=== PATIENT | male | born 1985 | race Caucasian/White ===

== ENCOUNTER 2024-02-16 08:55 | Emergency (ER) | payer MEDICAID ==
[~2024-02-16] VITALS: Ht 165.1 cm; Wt 91.6 kg
[2024-02-16 09:07] VITALS: BP 135/87; PULSE 113; RESP 18; TEMP 98.6; O2SAT 95
[2024-02-16] MEDS: diphenhydrAMINE 50 MG/ML VIAL IVP ONE (09:35)
[2024-02-16] MEDS: FAMOTIDINE 20 MG TAB PO ONE (09:44)
[2024-02-16] MEDS: EPINEPHrine 1 MG/ML AMP IM ONE (09:49)
[2024-02-16 09:53] VITALS: O2SAT 98
[2024-02-16 09:57] LABS: BASOPHILS % (AUTO) 0.2 % (0.0-2.0); EOSINOPHILS % (AUTO) 0.1 % (0.0-4.0); WHITE BLOOD COUNT (AUTO) 21.6 K/uL (4.8-10.8)
[2024-02-16 10:02] LABS: BASOPHILS # (AUTO) 0.1 K/uL (0.00-0.22); HEMATOCRIT 52.6 % (36-52); LYMPHOCYTES # (AUTO) 2.5 K/uL (2.0-11.5); LYMPHOCYTES % (AUTO) 11.8 % (20.5-51.1); MEAN CORPUSCULAR HEMOGLOBIN 31 pg (27-31); MEAN CORPUSCULAR HGB CONC 34 g/dL (33-37); MEAN CORPUSCULAR VOLUME 89.3 fL (80-94); MONOCYTES % (AUTO) 4.8 % (1.7-9.3); NEUTROPHILS % (AUTO) 83.1 % (42.2-75.2); PLATELET COUNT (AUTO) 360 K/uL (140-450); RED BLOOD CELL COUNT(AUTO) 5.89 MIL/uL (4.20-6.10); RED CELL DISTRIBUTION WIDTH 13.6 % (11.6-13.7)
[2024-02-16 10:08] LABS: ANION GAP 13.7 (8-16); CARBON DIOXIDE 28.1 mmol/L (21-32); CREATININE 0.8 mg/dL (0.6-1.3); POTASSIUM 3.8 mmol/L (3.5-5.1)
[2024-02-16] MEDS: ONDANSETRON 4 MG/2 ML VIAL IVP ONE (10:13)
[2024-02-16] MEDS: NACL 0.9% 1,000 ML IV ONE (10:15)
[2024-02-16] MEDS ORDERED: CRUSHER, PILL MC ONE (11:22)
[2024-02-16] MEDS: predniSONE 20 MG TAB PO ONE (11:26)
[2024-02-16] MEDS ORDERED: EPIN1KIT31 IM (12:26)
[2024-02-16] MEDS ORDERED: ONDA4ODT2 PO (12:27)
[2024-02-16] MEDS ORDERED: PRED20TA5 PO (12:28)
[2024-02-16 12:44] VITALS: BP 100/51; PULSE 88; RESP 22; O2SAT 97
[2024-02-17] MEDS ORDERED: BEN50 PO (03:14)
== END 2024-02-16 12:44 | disposition home or self-care (01) ==
LOC: MED 08:55
DX: T78.40XA Allergy, unspecified, initial encounter (principal); Z79.899 Other long term (current) drug therapy; X58.XXXA Exposure to other specified factors, initial encounter
CPT/HCPCS: 36415; 80048; 85025; 96361; 96372; 96374; 96375; 99284; J0171; J1200; J2405; J7512

== ENCOUNTER 2024-02-16 23:20 | Emergency (ER) | payer MEDICAID ==
[~2024-02-16] VITALS: Ht 167.6 cm; Wt 81.6 kg
[~2024-02-16 23:20] MED LIST: EPIN1KIT31 IM; ONDA4ODT2 PO; PRED20TA5 PO
[2024-02-16 23:33] VITALS: BP 146/79; PULSE 93; RESP 16; TEMP 99.3; O2SAT 98
[2024-02-17] MEDS: FAMOTIDINE 20 MG TAB PO ONE (00:44)
[2024-02-17] MEDS: diphenhydrAMINE 50 MG/ML VIAL IM ONE (00:44)
[2024-02-17] MEDS: predniSONE 20 MG TAB PO ONE (00:44)
[2024-02-17] MEDS: diphenhydrAMINE 50 MG/ML VIAL IVP ONE (02:23)
[2024-02-17] MEDS: methylPREDNISolone SS 125 MG/2 ML VIAL IVP ONE (02:23)
[2024-02-17] MEDS: FAMOTIDINE 20 MG/2 ML VIAL IVP ONE (02:23)
[2024-02-17] MEDS ORDERED: BEN50 PO (03:14)
[2024-02-17 03:39] VITALS: BP 117/71; PULSE 70; RESP 16; TEMP 97.9; O2SAT 98
== END 2024-02-17 03:39 | disposition home or self-care (01) ==
LOC: MED 23:20
DX: R21 Rash and other nonspecific skin eruption (principal); T78.49XA Other allergy, initial encounter; Z79.899 Other long term (current) drug therapy; X58.XXXA Exposure to other specified factors, initial encounter
CPT/HCPCS: 96372; 96374; 96375; 99284; J1200; J2930; J3490; J7512